=== PATIENT | male | born 1930 | race Caucasian/White ===

== ENCOUNTER 2017-10-12 13:56 | Observation (INO) | payer MEDICARE ==
[2017-10-12] MEDS ORDERED: NITROGLYCERIN SL TABS 0.4 MG TAB SUBLINGUAL STA (14:17)
--- NOTE | 2017-10-12 14:20 | ED ---
Chest Pain HPI - General Chief Complaint: Chest Pain Stated Complaint: chest pain/pain in left arm Time Seen by Provider: 10/12/17 14:05 Source: patient, RN notes reviewed Mode of arrival: wheelchair Limitations: no limitations - History of Present Illness Initial Comments: This is a 87-year-old male who presents with complaints of shortness of breath exertional dyspnea and chest pain today. States the shortness of breath For about 3 days he started developing chest pain today. She states it was 5/ 10 severity pressure-like with radiation to the left arm he still has some pain was better in about 3/10. He does also state that he had exertional dyspnea he was trying to cut her lawn yesterday when he has to stop using does not happen. He isn't no fever no chills no sweats cough or phlegm production. Complaint: chest pain - Related Data Home Medications Medication Instructions Recorded Confirmed Aspirin EC [Ecotrin] 325 mg PO DAILY PRN 10/12/17 10/12/17 Multivit-Min/FA/Lycopen/Lutein 1 tab PO DAILY 10/12/17 10/12/17 [Centrum Silver Men Tablet] Potassium Gluconate 99 mg PO DAILY 10/12/17 10/12/17 Allergies Allergy/AdvReac Type Severity Reaction Status Date / Time erythromycin base Allergy Unknown Verified 10/12/17 15:04 Review of Systems ROS Statement: Those systems with pertinent positive or pertinent negative responses have been documented in the HPI. ROS Other: All systems not noted in ROS Statement are negative. EKG Findings - EKG Results: EKG: interpreted by ERMD (Sinus rhythm left exodeviation LVH ventricular rate 71 FL interval 204 QRS duration 106 QT since QTC remained 96/4:30 st-t wave changes.) Past Medical History Past Medical History: Cancer Additional Past Medical History / Comment(s): prostate cancer History of Any Multi-Drug Resistant Organisms: None Reported Past Surgical History: Joint Replacement, Prostate Surgery Past Psychological History: No Psychological Hx Reported Smoking Status: Never smoker Past Alcohol Use History: None Reported Past Drug Use History: None Reported General Exam - General Exam Comments Initial Comments: This is a well-developed well-nourished awake alert oriented 3 male Limitations: no limitations General appearance: alert, in no apparent distress Head exam: Present: atraumatic, normocephalic, normal inspection Eye exam: Present: normal appearance, PERRL, EOMI. Absent: scleral icterus, conjunctival injection, periorbital swelling ENT exam: Present: normal exam, mucous membranes moist Neck exam: Present: normal inspection, full ROM. Absent: tenderness, meningismus, lymphadenopathy Respiratory exam: Present: normal lung sounds bilaterally. Absent: respiratory distress, wheezes, rales, rhonchi, stridor Cardiovascular Exam: Present: regular rate, normal rhythm, normal heart sounds. Absent: systolic murmur, diastolic murmur, rubs, gallop, clicks GI/Abdominal exam: Present: soft, normal bowel sounds. Absent: distended, tenderness, guarding, rebound, rigid Extremities exam: Present: normal inspection, full ROM, normal capillary refill. Absent: tenderness, pedal edema, joint swelling, calf tenderness Back exam: Present: normal inspection Neurological exam: Present: alert, oriented X3, CN II-XII intact Psychiatric exam: Present: normal affect, normal mood Skin exam: Present: warm, dry, intact, normal color. Absent: rash Course Vital Signs 10/12/17 10/12/17 13:59 14:54 Temperature 97.8 F Pulse Rate 70 68 Respiratory 20 16 Rate Blood Pressure 162/77 109/66 O2 Sat by Pulse 99 99 Oximetry - Reevaluation(s) Reevaluation #1: 10/12/17 15:57 Reevaluation patient states he is pain-free after nitroglycerin was given. Chest Pain MDM - MDM I did review the imaging and report no acute findings. Patient does have evidence of chest pain consistent with angina. He did get relief from the chest pain with nitroglycerin. He will be admitted with cardiology consultation. Critical Care Time Critical Care Time: Yes Critical Care Time: 31 minutes of critical care time which includes initial presentation with history physical labs x-rays reevaluation patient several occasions discuss with the patient family regarding findings discussion with the admitting physician admission orders and documentation of the above Disposition Clinical Impression: Unstable angina pectoris, Chest pain Disposition: ADMITTED IP TO THIS [facility] Condition: Stable Referrals: Frankie Sierra MD [Primary Care Provider] - 1-2 days
[2017-10-12 14:28] LABS: Basophils % (A) 0 %; Eosinophils # (A) 0.1 k/uL (0-0.7); Eosinophils % (A) 2 %; HCT 45.7 % (39.0-53.0); HGB 14.8 gm/dL (13.0-17.5); Lymphocytes # (A) 1.8 k/uL (1.0-4.8); Lymphocytes % (A) 38 %; MCH 30.5 pg (25.0-35.0); MCHC 32.5 g/dL (31.0-37.0); MCV 93.8 fL (80.0-100.0); Mean Platelet Volume 6.3; Monocytes # (A) 0.3 k/uL (0-1.0); Monocytes % (A) 6 %; Neutrophils # (A) 2.4 k/uL (1.3-7.7); Neutrophils % (A) 49 %; Platelet Count 347 k/uL (150-450); RBC 4.87 m/uL (4.30-5.90); RDW 12.1 % (11.5-15.5); WBC 4.8 k/uL (3.8-10.6)
[2017-10-12 14:36] LABS: Partial Thromboplastin Time 24.6 sec (22.0-30.0); Prothrombin Time 9.8 sec (9.0-12.0)
--- NOTE | 2017-10-12 14:43 | XR ---
EXAMINATION TYPE: XR chest 2V DATE OF EXAM: 10/12/2017 COMPARISON: NONE TECHNIQUE: PA and lateral views submitted. HISTORY: Chest pain FINDINGS: The lungs are clear and there is no pneumothorax, pleural effusion, or focal pneumonia. Heart size is prominent. Hypertrophic change and degenerative disc disease noted. Surgical clips in the abdomen. Biapical pleural thickening. No overt failure. Arthropathy of the shoulders with diffuse osteopenia. IMPRESSION: 1. No acute process.
[2017-10-12 14:55] LABS: ALT 26 U/L (21-72); AST 24 U/L (17-59); Albumin 4.5 g/dL (3.5-5.0); Alkaline Phosphatase 84 U/L (38-126); Anion Gap 10 mmol/L; Blood Urea Nitrogen 20 mg/dL (9-20); Calcium 9.7 mg/dL (8.4-10.2); Carbon Dioxide 28 mmol/L (22-30); Chloride 102 mmol/L (98-107); Glucose 142 mg/dL (74-99); Magnesium 2.1 mg/dL (1.6-2.3); Potassium 4.3 mmol/L (3.5-5.1); Sodium 140 mmol/L (137-145); Total Bilirubin 1.1 mg/dL (0.2-1.3); Total Protein 9.1 g/dL (6.3-8.2)
[2017-10-12 14:56] LABS: Creatine Kinase 43 U/L (55-170)
[2017-10-12 15:07] LABS: Creatine Kinase MB 1.2 ng/mL (0.0-2.4); Troponin I <0.012 ng/mL (0.000-0.034)
[2017-10-12] MEDS ORDERED: HEPARIN SOD,PORK IN 0.45% NACL 25,000 UNIT in 0.45% NACL 1 500ML.BAG IV SCH (16:00)
[2017-10-12] MEDS ORDERED: HEPARIN SODIUM,PORCINE 5,000 UNIT/ML 1 ML VIAL IV ONE (16:00)
[2017-10-12] MEDS ORDERED: NITROGLYCERIN SL TABS 0.4 MG TAB SUBLINGUAL PRN (16:00)
[2017-10-12] MEDS: SODIUM CHLORIDE 0.9% 1,000 ML IV SCH (16:17)
[2017-10-12 17:25] VITALS: BMI 28.6
[2017-10-12] MEDS: NITROGLYCERIN OINT 1 INCH/GM PACKET TOPICAL SCH ×2 (19:02→23:24)
[2017-10-12 22:01] LABS: Creatine Kinase 29 U/L (55-170)
[2017-10-12 22:14] LABS: Creatine Kinase MB 0.9 ng/mL (0.0-2.4); Troponin I <0.012 ng/mL (0.000-0.034)
[2017-10-13 04:02] LABS: Creatine Kinase 27 U/L (55-170)
[2017-10-13 04:05] LABS: Cholesterol 142 mg/dL (<200); HDL Cholesterol 46 mg/dL (40-60); LDL Cholesterol,Calculated 85 mg/dL (0-99); Triglycerides 54 mg/dL (<150)
[2017-10-13 04:15] LABS: Creatine Kinase MB 0.7 ng/mL (0.0-2.4); Troponin I <0.012 ng/mL (0.000-0.034)
[2017-10-13] MEDS: NITROGLYCERIN OINT 1 INCH/GM PACKET TOPICAL SCH (05:24)
[2017-10-13] MEDS ORDERED: DOBUTamine DRIP for NUC MED 500 MG in DEXTROSE/WATER 1 250ML.BAG IV ONE (08:22)
[2017-10-13] MEDS ORDERED: REGADENOSON 0.4 MG/5 ML SYRINGE IV ONE (08:30)
[2017-10-13] MEDS ORDERED: AMINOPHYLLINE 500 MG/20 ML VIAL IV PRN (08:30)
[2017-10-13] MEDS ORDERED: ALPRAZolam 0.25 MG TAB PO PRN (08:48)
[2017-10-13] MEDS ORDERED: ALPRAZolam 0.5 MG TAB PO PRN (08:48)
[2017-10-13] MEDS ORDERED: SODIUM CHLORIDE 0.9% 1,000 ML in EMPTY BAG 1 BAG IV ONE (08:48)
[2017-10-13] MEDS ORDERED: ATORVASTATIN 80 MG TAB PO STA (08:51)
[2017-10-13] MEDS ORDERED: ASPIRIN 325 MG TAB PO STA (08:51)
[2017-10-13] MEDS ORDERED: ASPIRIN 325 MG TAB PO SCH (09:00)
[2017-10-13] MEDS ORDERED: NON-FORMULARY DRUG (Potassium Gluconate [Potassium Gluconate] 99 MG) PO SCH (09:00)
[2017-10-13] MEDS ORDERED: LIDOCAINE 1% INJ 10MG/ML (20 ML MDV) ONE ×2 (09:25→11:55)
[2017-10-13] MEDS ORDERED: MIDAZOLAM 2 MG/2 ML VIAL ONE (09:25)
[2017-10-13] MEDS ORDERED: LIDOCAINE 1% INJ 10MG/ML (20 ML MDV) SQ ONE ×2 (09:38→12:08)
[2017-10-13] MEDS ORDERED: MIDAZOLAM 2 MG/2 ML VIAL IVP ONE (09:39)
[2017-10-13] MEDS ORDERED: IOPAMIDOL-370 125ML BTL INJ ONE ×2 (09:57→12:29)
[2017-10-13] MEDS ORDERED: IV FLUID CONTINUATION 1,000 ML IV ONE ×2 (09:58→12:21)
--- NOTE | 2017-10-13 10:13 | P.CRDCN ---
History of Present Illness History of present illness: Mr. Aguila is a pleasant 87-year-old male with no significant past medical history. He denies history of coronary artery disease and has never seen a bond writer for any reason. We have been asked to see him in consultation for symptoms of chest discomfort. He states this started about a week ago while he was cutting grass he noticed cessation in the anterior precordial region with associated shortness of breath. The symptoms persisted while he cut the grass and seemed to subside when he finished cutting the grass. He currently symptoms at that time and carried on with his regular activities. He noticed the symptoms again yesterday doing normal activities around the house. This time he noticed radiation down into the left arm which prompted him to come in for evaluation. He again had shortness of breath and some mild diaphoresis. Denies associated palpitations, nausea, vomiting or dizziness. EKG reveals sinus mechanism with no acute ST or T-wave abnormalities. Chest xray is negative for an acute cardiopulmonary process. Laboratory data reviewed, hemoglobin 14.8, platelets 347, sodium 140, potassium 4.3, magnesium 2.1, creatinine 0.8, cardiac enzymes negative 3, LDL 85, HDL 46. He takes no daily medications other than vitamin supplementation. He states approximately 5 years ago while he was vacationing in [place] he developed chest pain and underwent stress testing at that time. He states that the stress test was normal. His records are unavailable to me at this time. Review of Systems At the time of my exam: CONSTITUTIONAL: Denies fever. Denies chills. EYES: Denies blurred vision. Denies vision changes. Denies eye pain. EARS, NOSE, MOUTH & THROAT: Denies headache. Denies sore throat. Denies ear pain. CARDIOVASCULAR: Denies chest pain. Denies shortness of breath. Denies orthopnea. Denies PND. Denies palpitations. RESPIRATORY: Denies cough. GASTROINTESTINAL: Denies abdominal pain. Denies diarrhea. Denies constipation. Denies nausea. Denies vomiting. MUSCULOSKELETAL: Denies myalgias. INTEGUMENTARY: Denies pruitis. Denies rash. NEUROLOGIC: Denies numbness. Denies tingling. Denies weakness. PSYCHIATRIC: Denies anxiety. Denies depression. ENDOCRINE: Denies fatigue. Denies weight change. Denies polydipsia. Denies polyurina. GENITOURINARY: Denies burning, hematuria or urgency with micturation. HEMATOLOGIC: Denies history of anemia. Denies bleeding. Past Medical History Past Medical History: Cancer Additional Past Medical History / Comment(s): prostate cancer History of Any Multi-Drug Resistant Organisms: None Reported Past Surgical History: Joint Replacement, Prostate Surgery Additional Past Surgical History / Comment(s): left knee Past Anesthesia/Blood Transfusion Reactions: Previous Problems w/ Anesthesia, Motion Sickness, Postoperative Nausea & Vomiting (PONV) Past Psychological History: No Psychological Hx Reported Smoking Status: Never smoker Past Alcohol Use History: None Reported Past Drug Use History: None Reported - Past Family History Mother Family Medical History: Coronary Artery Disease (CAD) Father Family Medical History: CVA/TIA Brother(s) Family Medical History: Coronary Artery Disease (CAD), Myocardial Infarction ([place] ) Medications and Allergies Home Medications Medication Instructions Recorded Confirmed Type Aspirin EC [Ecotrin] 325 mg PO DAILY PRN 10/12/17 10/12/17 History Multivit-Min/FA/Lycopen/Lutein 1 tab PO DAILY 10/12/17 10/12/17 History [Centrum Silver Men Tablet] Potassium Gluconate 99 mg PO DAILY 10/12/17 10/12/17 History Allergies Allergy/AdvReac Type Severity Reaction Status Date / Time erythromycin base Allergy Unknown Verified 10/12/17 15:04 Physical Exam Vitals: Vital Signs Temp Pulse Pulse Resp BP BP Pulse Ox 10/13/17 08:49 97.6 F 64 18 101/51 97 10/13/17 08:00 64 18 10/13/17 07:25 97.6 F 64 18 101/51 97 10/13/17 04:00 16 10/13/17 03:40 98.3 F 64 16 101/40 95 10/13/17 00:00 16 10/12/17 23:20 97.7 F 68 16 107/49 95 10/12/17 20:00 16 10/12/17 18:40 98.6 F 80 16 118/65 97 10/12/17 16:50 16 10/12/17 16:45 98.2 F 70 18 133/67 98 10/12/17 16:31 98.2 F 10/12/17 15:59 67 16 114/68 99 10/12/17 14:54 68 16 109/66 99 10/12/17 13:59 97.8 F 70 20 162/77 99 Intake and Output 10/12/17 10/13/17 10/13/17 22:59 06:59 14:59 Intake Total 836.55 100 Balance 836.55 100 Intake: IV 100 Intake, IV Titration 116.55 Amount Heparin Sod,Pork in 0.45% 116.55 NaCl 25,000 unit In 0.45 % NaCl 1 500ml.bag @ 11.3 UNITS/KG/HR 19.98 mls/hr IV .Q24H [facility] Rx#: [id number] Oral 720 Other: Voiding Method Toilet Toilet Toilet # Voids 1 1 Weight 90.5 kg Blood pressure 101/51 heart rate 64 afebrile maintaining oxygen saturation on room air GENERAL: This is a 87-year-old male in no apparent distress at the time of my examination. HEENT: Head is atraumatic, normocephalic. Pupils are equal, round. Sclerae anicteric. Conjunctivae are clear. Mucous membranes of the mouth are moist. Neck is supple. There is no jugular venous distention. No carotid bruit is heard. LUNGS: Clear to auscultation no wheezes, rales or rhonchi. No chest wall tenderness is noted on palpation or with deep breathing. HEART: Regular rate and rhythm without murmurs, rubs or gallops. S1 and S2 heard. ABDOMEN: Soft, nontender. Bowel sounds are heard. No organomegaly noted. EXTREMITIES: No evidence of peripheral edema and no calf tenderness noted. VASCULAR: Radial and dorsalis pedis pulses palpated, no evidence of clubbing. NEUROLOGIC: Patient is awake, alert and oriented x3. Results 10/12/17 14:10 10/12/17 14:10 Cardiac Enzymes 10/12/17 10/12/17 10/12/17 Range/Units 14:10 14:10 21:09 AST 24 (17-59) U/L CK-MB (CK-2) 1.2 0.9 (0.0-2.4) ng/mL Troponin I <0.012 <0.012 (0.000-0.034) ng/mL 10/13/17 Range/Units 03:30 AST (17-59) U/L CK-MB (CK-2) 0.7 (0.0-2.4) ng/mL Troponin I <0.012 (0.000-0.034) ng/mL Coagulation 10/12/17 10/12/17 10/13/17 Range/Units 14:10 21:09 03:30 PT 9.8 (9.0-12.0) sec APTT 24.6 40.6 H 50.5 H (22.0-30.0) sec Lipids 10/13/17 Range/Units 03:30 Triglycerides 54 (<150) mg/dL Cholesterol 142 (<200) mg/dL HDL Cholesterol 46 (40-60) mg/dL CBC 10/12/17 Range/Units 14:10 WBC 4.8 (3.8-10.6) k/uL RBC 4.87 (4.30-5.90) m/uL Hgb 14.8 (13.0-17.5) gm/dL Hct 45.7 (39.0-53.0) % Plt Count 347 (150-450) k/uL Comprehensive Metabolic Panel 10/12/17 Range/Units 14:10 Sodium 140 (137-145) mmol/L Potassium 4.3 (3.5-5.1) mmol/L Chloride 102 (98-107) mmol/L Carbon Dioxide 28 (22-30) mmol/L BUN 20 (9-20) mg/dL Creatinine 0.80 (0.66-1.25) mg/dL Glucose 142 H (74-99) mg/dL Calcium 9.7 (8.4-10.2) mg/dL AST 24 (17-59) U/L ALT 26 (21-72) U/L Alkaline Phosphatase 84 (38-126) U/L Total Protein 9.1 H (6.3-8.2) g/dL Albumin 4.5 (3.5-5.0) g/dL Current Medications Generic Name Dose Route Start Last Admin Trade Name Freq PRN Reason Stop Dose Admin Alprazolam 0.25 mg 10/13/17 08:48 Xanax PO Q6HR PRN Mild Anxiety Alprazolam 0.5 mg 10/13/17 08:48 Xanax PO Q6HR PRN Moderate Anxiety Sodium Chloride 1,000 mls @ 20 mls/hr 10/12/17 16:00 10/12/17 16:17 Saline 0.9% IV 20 mls/hr .Q24H [facility] Administration Sodium Chloride 1,000 ml/ IV 1,000 mls @ 90.5 mls/hr 10/13/17 08:48 10/13/17 09:04 Solution IV 10/13/17 19:50 90.5 mls/hr .Q11H3M ONE Administration 1 ML/KG/HR Multivitamins 1 each 10/13/17 12:00 Theragran PO 1200 LISA Nitroglycerin 0.4 mg 10/12/17 16:00 Nitrostat SUBLINGUAL Q5M PRN Chest Pain Intake and Output 10/12/17 10/13/17 10/13/17 22:59 06:59 14:59 Intake Total 836.55 100 Balance 836.55 100 Intake: IV 100 Intake, IV Titration 116.55 Amount Heparin Sod,Pork in 0.45% 116.55 NaCl 25,000 unit In 0.45 % NaCl 1 500ml.bag @ 11.3 UNITS/KG/HR 19.98 mls/hr IV .Q24H [facility] Rx#: [id number] Oral 720 Other: Voiding Method Toilet Toilet Toilet # Voids 1 1 Weight 90.5 kg 10/12/17 14:10 10/12/17 14:10 Assessment and Plan Assessment: ASSESSMENT Unstable angina, symptoms of exertional shortness of breath and chest pain for the last 7 days intermittently PLAN We will recommend proceeding with cardiac catheterization. I have discussed the risks, benefits and alternative therapies for the above-mentioned procedure and for both sedation/analgesia as well as necessary blood product administration, if indicated, as they pertain to this patient. The patient has indicated understanding and acceptance of the risks and procedures discussed. Questions have been answered appropriately and he is agreeable to move forward with the above stated procedure. Obtain 2-D echocardiogram and Doppler study to assess cardiac structure and function. Further recommendations to follow based upon clinical course. Thank you kindly for this consultation. The above impression and plan of care have been discussed and directed by the signing physician. Omayra Millan, nurse practitioner, acting as scribe for signing physician.
--- NOTE | 2017-10-13 10:55 | CC ---
CARDIAC CATHETERIZATION REPORT INDICATION: Unstable angina. PROCEDURE NOTE: After obtaining informed consent, left heart catheterization and coronary angiogram were performed via the right femoral artery using standard Anju catheters. Patient tolerated the procedure well without any obvious immediate complications. A femoral angiogram was performed. Patient received moderate conscious sedation. Total sedation time was 15 minutes. FINDINGS: 1. HEMODYNAMICS: Left ventricular end-diastolic pressure is 6 mm. There is no significant gradient across aortic valve. 2. LEFT VENTRICULOGRAM: Left ventriculogram was not performed. 3. ANGIOGRAPHIC DATA: 4. Left main coronary artery reveals a normal-sized vessel and is free of stenosis. Divides into left anterior descending coronary artery and circumflex coronary artery. LAD is heavily calcified but there are no focal significant lesions. It gives off 2 diagonal branches. The first diagonal branch has a 70%-80% ostial stenosis. Circumflex coronary artery and its branches are free of significant stenosis. It is a nondominant vessel. Right coronary artery is a large dominant vessel that shows a focal area of stenosis in the proximal part, at its worst it seems to be a 70% to 80% stenosis. CONCLUSION: 1. 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 2. An 80% stenosis involving the ostial portion of the first diagonal branch. PLAN: Patient will undergo angioplasty with stent placement of right coronary artery. MMODL / IJN: [id number] /
[2017-10-13] MEDS ORDERED: fentaNYL (PF) 50 MCG/ML 2 ML AMP ONE (11:55)
[2017-10-13] MEDS ORDERED: fentaNYL (PF) 50 MCG/ML 2 ML AMP IVP ONE (12:08)
--- NOTE | 2017-10-13 12:09 | P.HPIM ---
History of Present Illness 87-year-old male on presented emergency room with complaints of shortness of breath with left arm pain. States for a few weeks she's been developing discomfort after cutting the grass. Patient is not seen this patient for approximately 8 years. Patient travels between [place] and [place]. Family states he is healthy Review of Systems Constitutional: Reports fatigue Cardiovascular: Reports chest pain Respiratory: Reports dyspnea Past Medical History Past Medical History: Cancer Additional Past Medical History / Comment(s): prostate cancer History of Any Multi-Drug Resistant Organisms: None Reported Past Surgical History: Joint Replacement, Prostate Surgery Additional Past Surgical History / Comment(s): left knee Past Anesthesia/Blood Transfusion Reactions: Previous Problems w/ Anesthesia, Motion Sickness, Postoperative Nausea & Vomiting (PONV) Past Psychological History: No Psychological Hx Reported Smoking Status: Never smoker Past Alcohol Use History: None Reported Past Drug Use History: None Reported - Past Family History Mother Family Medical History: Coronary Artery Disease (CAD) Father Family Medical History: CVA/TIA Brother(s) Family Medical History: Coronary Artery Disease (CAD), Myocardial Infarction ([place] ) Medications and Allergies Home Medications Medication Instructions Recorded Confirmed Type Aspirin EC [Ecotrin] 325 mg PO DAILY PRN 10/12/17 10/12/17 History Multivit-Min/FA/Lycopen/Lutein 1 tab PO DAILY 10/12/17 10/12/17 History [Centrum Silver Men Tablet] Potassium Gluconate 99 mg PO DAILY 10/12/17 10/12/17 History Allergies Allergy/AdvReac Type Severity Reaction Status Date / Time erythromycin base Allergy Unknown Verified 10/12/17 15:04 Physical Exam Vitals: Vital Signs Temp Pulse Pulse Resp BP BP Pulse Ox 10/13/17 11:41 76 16 127/64 96 10/13/17 10:45 63 16 127/71 96 10/13/17 10:27 64 16 134/75 96 10/13/17 10:16 82 16 118/72 99 10/13/17 10:00 60 16 136/72 99 10/13/17 08:49 97.6 F 64 18 101/51 97 10/13/17 08:00 64 18 10/13/17 07:25 97.6 F 64 18 101/51 97 10/13/17 04:00 16 10/13/17 03:40 98.3 F 64 16 101/40 95 10/13/17 00:00 16 10/12/17 23:20 97.7 F 68 16 107/49 95 10/12/17 20:00 16 10/12/17 18:40 98.6 F 80 16 118/65 97 10/12/17 16:50 16 10/12/17 16:45 98.2 F 70 18 133/67 98 10/12/17 16:31 98.2 F 10/12/17 15:59 67 16 114/68 99 10/12/17 14:54 68 16 109/66 99 10/12/17 13:59 97.8 F 70 20 162/77 99 Intake and Output 10/12/17 10/13/17 10/13/17 22:59 06:59 14:59 Intake Total 836.55 100 Output Total 125 Balance 836.55 -25 Intake: IV 100 Intake, IV Titration 116.55 Amount Heparin Sod,Pork in 0.45% 116.55 NaCl 25,000 unit In 0.45 % NaCl 1 500ml.bag @ 11.3 UNITS/KG/HR 19.98 mls/hr IV .Q24H [facility] Rx#: [id number] Oral 720 Output: Urine 125 Other: Voiding Method Toilet Toilet Toilet # Voids 1 1 Weight 90.5 kg - Constitutional General appearance: average body habitus - EENT Eyes: PERRLA Ears: bilateral: normal - Neck Neck: normal ROM - Respiratory Respiratory: bilateral: CTA - Cardiovascular Rhythm: regular - Gastrointestinal General gastrointestinal: soft - Integumentary Integumentary: normal - Neurologic Neurologic: CNII-XII intact - Musculoskeletal Musculoskeletal: gait normal - Psychiatric Psychiatric: A&O x's 3, appropriate affect, intact judgment & insight Results CBC & Chem 7: 10/12/17 14:10 10/12/17 14:10 Labs: Abnormal Lab Results - Last 24 Hours (Table) 10/12/17 10/12/17 10/12/17 Range/Units 14:10 14:10 21:09 APTT (22.0-30.0) sec Glucose 142 H (74-99) mg/dL Total Creatine Kinase 43 L 29 L (55-170) U/L Total Protein 9.1 H (6.3-8.2) g/dL 10/12/17 10/13/1710/13/18 Range/Units 21:09 03:30 03:30 APTT 40.6 H 50.5 H (22.0-30.0) sec Glucose (74-99) mg/dL Total Creatine Kinase 27 L (55-170) U/L Total Protein (6.3-8.2) g/dL Chest x-ray: report reviewed (Cardiac cath showing of coronary disease right coronary artery) Thrombosis Risk Factor Assmnt - Choose All That Apply Any of the Below Risk Factors Present?: No Each Risk Factor Represents 3 Points: Age 75 years or older Thrombosis Risk Factor Assessment Total Risk Factor Score: 3 Thrombosis Risk Factor Assessment Level: Moderate Risk Assessment and Plan Assessment: Assessment Coronary disease patient is post cardiac cath showing right coronary artery disease Troponins negative 3 History of prostate cancer Plan Continued consultation with cardiology angioplasty a plan for stent placement right coronary artery
[2017-10-13] MEDS ORDERED: BIVALIRUDIN BOLUS 250 MG/50 ML IV ONE (12:10)
[2017-10-13] MEDS ORDERED: CLOPIDOGREL 75 MG TAB ONE (12:15)
[2017-10-13] MEDS ORDERED: CLOPIDOGREL 75 MG TAB PO ONE (12:17)
[2017-10-13] MEDS ORDERED: BIVALIRUDIN 250 MG in SODIUM CHLORIDE 0.9% 50 ML IV ONE (12:21)
[2017-10-13] MEDS ORDERED: ZOLPIDEM 5 MG TAB PO PRN (12:46)
[2017-10-13] MEDS ORDERED: RX INFO: IV CONTRAST WAS GIVEN 1 EACH MISC MISCELLANE PRN (12:46)
[2017-10-13] MEDS ORDERED: NITROGLYCERIN SL TABS 0.4 MG TAB SUBLINGUAL PRN (12:46)
[2017-10-13] MEDS ORDERED: MAG HYDROX/AL HYDROX/SIMETH 30 ML CUP PO PRN (12:46)
[2017-10-13] MEDS ORDERED: ATROPINE SULFATE 0.1 MG/ML 10ML SYRINGE IV PRN (12:46)
[2017-10-13] MEDS ORDERED: SODIUM CHLORIDE 0.9% 1,000 ML IV SCH (13:00)
[2017-10-13] MEDS: METOPROLOL TARTRATE 25 MG TAB PO SCH ×2 (14:25→20:57)
[2017-10-13] MEDS: MULTIVITAMINS, THERA 1 EACH TAB PO SCH (14:25)
--- NOTE | 2017-10-13 14:34 | PTCA ---
PERCUTANEOUSTRANS CORORONARY ANGIOGRAPHY Mr. Aguila is an 87-year-old male with no prior documented history of cardiac disease who presented with new onset angina pectoris. He underwent cardiac catheterization by Dr. Rosario and was found to have critical stenosis involving the calcified mid-right coronary artery. In view of that, recommendation made regarding angioplasty and stenting. The procedures, risks and complications were discussed with the patient who is in full understanding and agreement. PROCEDURE: Patient was brought to [facility] in a fasting semi-sedated state after receiving fentanyl and Benadryl and achieving moderate conscious sedated state. Using Xylocaine anesthesia and a guidewire exchange technique, a 6-Hebrew sheath in the right femoral artery was exchanged to a new 6-Hebrew sheath. Following that, a 6-Hebrew FR4 guiding catheter introduced into the system after cannulating the right coronary ostium, a 0.014 advanced medium weight J-wire was advanced across the lesion and positioned distally. Then, attempt to advance a 4.0 x 18 mm Xience Alpine stent were unsuccessful. That stent was removed and another 0.014 advanced medium weight J-wire was advanced next to the first one in a jojo fashion subsequently the stent was advanced, deployed and post-dilated at 16 atmospheres. After the last inflation, after appropriate wait, the balloon and the guidewire were withdrawn back in the guiding catheter. Images were obtained and repeated. Those images reveal stable successful stenting. At that point, the guiding catheter, the balloon and the guidewire were removed. The sheath was removed. Hemostasis was obtained with deployment of an Angio- Seal. There was no immediate complication. Patient is returned to his room in stable condition. Of note, patient received Angiomax per protocol as well as oral loading dose of clopidogrel. He had mild EKG changes that resolved at the end of the procedure. RESULTS: Successful stenting of the mid right coronary artery with reduction of stenosis from 80% to 0%. RECOMMENDATION: 1. Patient will be continued on aspirin, Plavix and statin. The importance of dual antiplatelet treatment was discussed with the patient and his family who are in full understanding and agreement. 2. Duration of procedure is 21 minutes. MMODL / IJN: [id number] /
--- NOTE | 2017-10-13 14:37 | LTR ---
DATE OF SERVICE; 10/13/2017 RE: Jaron Aguila Dear Dr. Sierra: I had the pleasure to perform coronary angioplasty and stenting on Mr. Aguila at [facility] on October 13, 2017 and a full copy of the procedure note will be forwarded to you. In brief, he was found to have critical stenosis in the mid right coronary artery, underwent successful stenting of that vessel using a drug-eluting stent. I am hopeful that this procedure will stabilize his status. Thank you again for allowing me to participate in this patient's care. Please feel free to call for any questions. Sincerely yours, Ana Adams MD MMSABINOL / JULIANNEN: [id number] /
[2017-10-13] MEDS: SODIUM CHLORIDE 0.9% 1,000 ML IV SCH (17:03)
[2017-10-14 06:06] LABS: Anion Gap 7 mmol/L; Blood Urea Nitrogen 14 mg/dL (9-20); Calcium 9.1 mg/dL (8.4-10.2); Carbon Dioxide 26 mmol/L (22-30); Chloride 105 mmol/L (98-107); Glucose 91 mg/dL (74-99); Potassium 3.9 mmol/L (3.5-5.1); Sodium 138 mmol/L (137-145)
[2017-10-14] MEDS: METOPROLOL TARTRATE 25 MG TAB PO SCH (08:16)
--- NOTE | 2017-10-14 08:39 | ECHOF ---
Referral Reason:cp, sob MEASUREMENTS -------- HEIGHT: 177.8 cm WEIGHT: 90.3 kg BP: 101/51 RVIDd: 3.5 cm (< 3.3) IVSd: 1.3 cm (0.6 - 1.1) LVIDd: 5.9 cm (3.9 - 5.3) LVPWd: 1.4 cm (0.6 - 1.1) IVSs: 1.7 cm LVIDs: 4.6 cm LVPWs: 1.8 cm LAESV Index (A-L): 40.24 ml/m Ao Diam: 4.0 cm (2.0 - 3.7) AV Cusp: 2.2 cm (1.5 - 2.6) LA Diam: 3.2 cm (2.7 - 3.8) MV E Girish: 0.41 m/s MV DecT: 377 ms MV A Girish: 0.71 m/s MV E/A Ratio: 0.58 AR PHT: 523 ms RAP: 5.00 mmHg RVSP: 21.91 mmHg MV EF SLOPE: 131.48 mm/s (70 - 150) MV EXCURSION: 1.72 cm (> 18.000) FINDINGS -------- Sinus rhythm. This was a technically adequate study. The left ventricular size is normal. There is mild concentric left ventricular hypertrophy. There is mild global hypokinesis of LV . Overall left ventricular systolic function is mildly impaired w ith, an EF between 45 - 50 %. The right ventricle is normal in size. LA is severely dilated >40 ml/m2 The right atrium is normal in size. Aortic valve is trileaflet and is mildly thickened. There is mild aortic regurgitation. There is no evidence of aortic stenosis. The mitral valve leaflets are mildly thickened. Cbyw-gn-qaahmgor mitral regurgitation is present. Trace tricuspid regurgitation present. Right ventricular systolic pressure is normal at < 35 mmHg. There is no evidence of pulmonary hypertension. Trace/mild (physiologic) pulmonic regurgitation. The aortic root size is normal. IVC Not well visulized. There is no pericardial effusion. CONCLUSIONS -------- 1. Sinus rhythm. 2. This was a technically adequate study. 3. The left ventricular size is normal. 4. There is mild concentric left ventricular hypertrophy. 5. There is mild global hypokinesis of LV . 6. Overall left ventricular systolic function is mildly impaired with, an EF between 45 - 50 %. 7. LA is severely dilated >40 ml/m2 8. Aortic valve is trileaflet and is mildly thickened. 9. There is mild aortic regurgitation. 10. The mitral valve leaflets are mildly thickened. 11. Rmvi-dk-suwxrxhd mitral regurgitation is present. 12. Trace tricuspid regurgitation present. 13. Right ventricular systolic pressure is normal at < 35 mmHg. 14. There is no evidence of pulmonary hypertension. 15. Trace/mild (physiologic) pulmonic regurgitation. 16. The aortic root size is normal. 17. IVC Not well visulized. 18. There is no pericardial effusion. COMMUNITY ENGAGEMENT SPECIALIST: Ye Beatty RDCS
[2017-10-14] MEDS ORDERED: ASPIRIN 81 MG PO SCH (09:00)
[2017-10-14 11:23] VITALS: BP 117/72; PULSE 54; RESP 16; TEMP 98.2
[2017-10-14] MEDS: MULTIVITAMINS, THERA 1 EACH TAB PO SCH (11:24)
--- NOTE | 2017-10-14 11:43 | PN ---
PROGRESS NOTE Mr. Aguila is an 87-year-old male who presented with symptoms of unstable angina, underwent cardiac catheterization, was found to have significant obstructive disease in the proximal mid right coronary artery, underwent stenting of that vessel. He is doing well this morning, ambulating without difficulty. Denying any chest pain. No dizziness or palpitation. Denies any nausea. He is continued on aspirin once a day, Lipitor 40 mg daily, Plavix 75 mg daily, metoprolol tartrate 25 mg twice a day. PHYSICAL EXAMINATION: Blood pressure 117/70 with a heart rate in the 60s. LUNGS: Clear. HEART: Regular rate and rhythm. S1, S2. No S3 with systolic murmur, no diastolic murmur. ABDOMEN: Soft, nontender. Right groin, no hematoma. LAB DATA: Revealed BUN and creatinine 14 and 0.7. IMPRESSION: 1. Unstable angina, status post stenting of the right coronary artery. 2. Hyperlipidemia. RECOMMENDATION: Patient will be discharged home today and follow in a week with Dr. Rosario. MMJOHN / JULIANNEN: [id number] /
[2017-10-14] MEDS ORDERED: CLOPIDOGREL 75 MG TAB PO SCH (12:00)
--- NOTE | 2017-10-14 13:16 | P.DS ---
Providers Date of admission: 10/12/17 16:00 Attending physician: Frankie Sierra Consults: 10/12/17 16:00 Consult Physician Urgent Consulting Provider: Humera Mukherjee Consult Reason/Comments: Unstable angina Do you want consulting provider notified?: Yes 10/13/17 12:46 Consult Physician Routine Consulting Provider: [facility] Consult Reason/Comments: Post Interventional patient Do you want consulting provider notified?: Already Contacted Primary care physician: Frankie Sierra Hospital Course: A pleasant 87 years old male with past medical history of prostate cancer, status post prostate surgery, motion sickness, who presents because of dyspnea and chest pain. He had significant dyspnea over 12 days' duration. Associated with mild left-sided chest pain no specific nonradiating. Patient underwent a logic evaluation and status post cardiac cath on 10/14/[address] Rosario who found to have critical stenosis involving the calcified midright coronary artery , with successful stenting with reduction of stenosis from 80% to 0%. On the day of discharge patient telling me his dyspnea and chest pain or completely resolved. He doesn't have any new complaints. No change in urine or bowel habits. No fever. Patient was cleared by cardiology for discharge Problem list and management plan was discussed with the patient and family at bedside and they verbalized understanding and agreement Patient was found stable and can be discharged home however he needs follow-up as an outpatient. Patient was instructed to follow up with his PCP Dr. Sierra in 1 week and they agree. Discussed the case with cardiology team under going to make appointments for the patient. Appointment dates and timing were discussed with the patient and he agrees with them. Physical exam GENERAL: The patient is alert and oriented x3, not in any acute distress. Well developed, well nourished. HEENT: Pupils are round and equally reacting to light. EOMI. No scleral icterus. No conjunctival pallor. Normocephalic, atraumatic. No pharyngeal erythema. No thyromegaly. CARDIOVASCULAR: S1 and S2 present. No murmurs, rubs, or gallops. PULMONARY: Chest is clear to auscultation, no wheezing or crackles. ABDOMEN: Soft, nontender, nondistended, normoactive bowel sounds. No palpable organomegaly. MUSCULOSKELETAL: No joint swelling or deformity. EXTREMITIES: No cyanosis, clubbing, or pedal edema. NEUROLOGICAL: Gross neurological examination did not reveal any focal deficits. SKIN: No rashes. Time spent more than 35 minutes Patient Condition at Discharge: Good Plan - Discharge Summary Discharge Rx Participant: No New Discharge Prescriptions: New Aspirin 81 mg PO DAILY #30 chew Atorvastatin [Lipitor] 40 mg PO HS #30 tab Clopidogrel [Plavix] 75 mg PO DAILY #30 tab Metoprolol Tartrate [Lopressor] 25 mg PO BID #60 tab Nitroglycerin Sl Tabs [Nitrostat] 0.4 mg SUBLINGUAL Q5M PRN #25 tab PRN Reason: Chest Pain Discontinued Aspirin EC [Ecotrin] 325 mg PO DAILY PRN PRN Reason: Chest Pain No Action Potassium Gluconate 99 mg PO DAILY Multivit-Min/FA/Lycopen/Lutein [Centrum Silver Men Tablet] 1 tab PO DAILY Discharge Medication List Multivit-Min/FA/Lycopen/Lutein [Centrum Silver Men Tablet] 1 tab PO DAILY [History] Potassium Gluconate 99 mg PO DAILY 10/12/17 [History] Aspirin 81 mg PO DAILY #30 chew 10/14/17 [Rx] Atorvastatin [Lipitor] 40 mg PO HS #30 tab 10/14/17 [Rx] Clopidogrel [Plavix] 75 mg PO DAILY #30 tab 10/14/17 [Rx] Metoprolol Tartrate [Lopressor] 25 mg PO BID #60 tab 10/14/17 [Rx] Nitroglycerin Sl Tabs [Nitrostat] 0.4 mg SUBLINGUAL Q5M PRN #25 tab 10/14/17 [Rx ] Follow up Appointment(s)/Referral(s): Frankie Sierra MD [Primary Care Provider] - 10/19/17 10:20 am (Tuesday) Young Rosario MD [STAFF PHYSICIAN] - 10/20/17 12:45 pm () Patient Instructions/Handouts: *Surgery [facility] - After Heart Catheterization - [employer] Instructions, Left Heart Catheterization (DC) Activity/Diet/Wound Care/Special Instructions: Continue with cardiac diet Activity is limited total you see your Doctor Discharge Disposition: HOME SELF-CARE
[2017-10-14] MEDS ORDERED: ATORVASTATIN 40 MG TAB PO SCH (21:00)
== END 2017-10-14 15:02 | disposition home or self-care (01) ==
LOC: EC 13:56 → 3OBS 16:00 → 6SEL 10-13 12:40
PROVIDERS: ADMIT Family Medicine; ATTEND Family Medicine
DX: I25.110 Atherosclerotic heart disease of native coronary artery with unstable angina pectoris (principal); E78.5 Hyperlipidemia, unspecified; Z85.46 Personal history of malignant neoplasm of prostate; Z82.49 Family history of ischemic heart disease and other diseases of the circulatory system; Z79.899 Other long term (current) drug therapy; Z88.1 Allergy status to other antibiotic agents; Z79.82 Long term (current) use of aspirin
CPT/HCPCS: 96374; 99291; 36415; 93005; 93306; 93458; 85347; 85379; 83880; 80061; 80053; 80048; 82550 ×2; 82553 ×2; 83735; 84484 ×2; 85025; 85610; 85730 ×2; 71046; G0378 ×4; C9600; C1769 ×2; C1760; C1887; C1894; C1874; J2250; J1250; J1644 ×2; J2001; J3010; J0583; J2785; Q9967

== ENCOUNTER → 2017-12-27 | Outpatient (CLI) | payer MEDICARE ==
[2017-12-27 09:00] LABS: ALT 32 U/L (21-72); AST 25 U/L (17-59); Cholesterol 114 mg/dL (<200); HDL Cholesterol 48 mg/dL (40-60); LDL Cholesterol,Calculated 52 mg/dL (0-99); Triglycerides 71 mg/dL (<150)
== END ==
LOC: LABWHC1 07:37
PROVIDERS: ATTEND Internal Medicine Cardiovascular Disease
DX: E78.2 Mixed hyperlipidemia (principal)
CPT/HCPCS: 36415; 80061; 84450; 84460

== ENCOUNTER → 2018-02-15 | Outpatient (CLI) | payer MEDICARE ==
--- NOTE | 2018-02-15 15:25 | CT ---
EXAMINATION TYPE: CT abdomen pelvis wo con DATE OF EXAM: 02/15/2018 COMPARISON: None HISTORY: 87-year-old male gross hematuria X 2 weeks, hx of prostate ca CT DLP: 846.7 mGycm. Automated exposure control for dose reduction was used. TECHNIQUE: Contiguous axial scanning of the abdomen and pelvis without IV contrast. Coronal and sagit paula reconstructions performed. FINDINGS: Heart borderline enlarged without pericardial effusion. Coronary vessel calcifications are present an d are remarkable for coronary artery disease. Strandy areas of atelectasis in the lower lungs. Calcif ied granuloma posterior left base. No pleural effusion. Small hiatal hernia. Multiple hypodense lesions within the liver is inadequately characterized on this noncontrast study b ut most suggestive of benign cysts, largest measuring 5.5 cm central left liver lobe. Cholecystectomy clips. Adrenal glands, and atrophic pancreas show no gross abdomen only. A few scattered calcified granulomas in the spleen. No evidence for nephrolithiasis or hydronephrosis. There is a 2.4 cm hypodense cortical lesion upper pole of the left kidney that may represent a cyst. No suspicious calcifications seen along the course of either ureter. No dilated small bowel, free fluid, or free air. No mesenteric or retroperitoneal lymphadenopathy. Mild to moderate stool within the right hemicolon. No pericolonic inflammatory change. Bladder not distended. Prostate gland is surgically absent. Penile prosthesis is present with cathete r extending along the right inguinal canal and reservoir located in the central pelvis above the blad alberto. No abnormal fluid collection in the pelvis or pelvic lymphadenopathy. Left-sided pelvic phleboli ths. Bones: Degenerative changes at the right greater than left hips, SI joints, and facet arthropathy thr oughout as well as multilevel degenerative disc disease. Grade 1 retrolisthesis and L1-L2. IMPRESSION: 1. A 2.4 cm cortical hypodense lesion upper pole left kidney. Assessment is limited on this noncontra st CT but the lesion likely represents a cyst. This can be confirmed with renal ultrasound. If the le martin remains equivocal on ultrasound, either a contrast enhanced study or 6 month follow-up CT can be performed. 2. No nephrolithiasis or hydronephrosis. 3. Bladder partially distended. Prostate gland surgically absent. 4. Multiple lesions, likely cysts within the liver measuring up to 5.5 cm.
== END | disposition home or self-care (01) ==
LOC: RADCTMAIN 14:47
PROVIDERS: ATTEND Urology
DX: N28.9 Disorder of kidney and ureter, unspecified (principal); N32.89 Other specified disorders of bladder; Z90.79 Acquired absence of other genital organ(s); Z88.1 Allergy status to other antibiotic agents
CPT/HCPCS: 74176

== ENCOUNTER 2019-08-22 22:37 | Observation (INO) | payer MEDICARE ==
[2019-08-23 05:43] LABS: ALT 28 U/L (4-49); AST 30 U/L (17-59); African American GFR (CKD) >90 (>60 ml/min/1.73 sqM); Albumin 3.7 g/dL (3.5-5.0); Alkaline Phosphatase 102 U/L (38-126); Anion Gap 5 mmol/L; Blood Urea Nitrogen 24 mg/dL (9-20); Calcium 8.9 mg/dL (8.4-10.2); Carbon Dioxide 25 mmol/L (22-30); Chloride 105 mmol/L (98-107); Glucose 143 mg/dL (74-99); Non-African American GFR(CKD) 85 (>60 ml/min/1.73 sqM); Potassium 4.1 mmol/L (3.5-5.1); Sodium 135 mmol/L (137-145); Total Bilirubin 0.6 mg/dL (0.2-1.3); Total Protein 7.8 g/dL (6.3-8.2)
[2019-08-23 05:44] LABS: Basophils % (A) 0 %; Eosinophils # (A) 0.2 k/uL (0-0.7); Eosinophils % (A) 4 %; HGB 12.6 gm/dL (13.0-17.5); Lymphocytes # (A) 1.9 k/uL (1.0-4.8); Lymphocytes % (A) 37 %; MCH 33.6 pg (25.0-35.0); MCHC 34.9 g/dL (31.0-37.0); MCV 96.3 fL (80.0-100.0); Monocytes # (A) 0.4 k/uL (0-1.0); Monocytes % (A) 9 %; Neutrophils # (A) 2.3 k/uL (1.3-7.7); Neutrophils % (A) 45 %; Platelet Count 275 k/uL (150-450); RBC 3.74 m/uL (4.30-5.90); RDW 12.1 % (11.5-15.5); WBC 5.1 k/uL (3.8-10.6)
[2019-08-23 06:04] LABS: Partial Thromboplastin Time 25.6 sec (22.0-30.0); Prothrombin Time 10.2 sec (9.0-12.0)
[2019-08-23] MEDS ORDERED: ONDANSETRON 4 MG/2 ML VIAL IVP PRN (06:08)
[2019-08-23] MEDS ORDERED: ACETAMINOPHEN TAB 325 MG TAB PO PRN (06:08)
[2019-08-23] MEDS: SODIUM CHLORIDE 0.9% 1,000 ML IV SCH ×2 (06:23→10:43)
--- NOTE | 2019-08-23 06:35 | XR ---
EXAM: XR Chest, 2 Views CLINICAL HISTORY: chest pain TECHNIQUE: Frontal and lateral views of the chest. COMPARISON: No relevant prior studies available. FINDINGS: Lungs: Unremarkable. No infiltration, atelectasis or mass density. Pleural space: Unremarkable. No pneumothorax. No pleural fluid. Heart: Unremarkable. No cardiomegaly. Mediastinum: Unremarkable. Bones/joints: Unremarkable. No acute abnormalities. IMPRESSION: No acute findings in the chest.
[2019-08-23] MEDS ORDERED: NITROGLYCERIN SL TABS 0.4 MG TAB SUBLINGUAL PRN ×2 (09:33→11:11)
[2019-08-23] MEDS ORDERED: MULTIVITAMINS, THERA 1 EACH TAB PO SCH (09:45)
[2019-08-23] MEDS ORDERED: ASPIRIN 81 MG PO SCH (09:45)
[2019-08-23] MEDS ORDERED: METOPROLOL TARTRATE 25 MG TAB PO SCH (10:00)
[2019-08-23] MEDS ORDERED: ALPRAZolam 0.25 MG TAB PO PRN (11:11)
[2019-08-23] MEDS ORDERED: SODIUM CHLORIDE 0.9% 1,000 ML in EMPTY BAG 1 BAG IV ONE (11:11)
[2019-08-23] MEDS ORDERED: ATORVASTATIN 80 MG TAB PO STA (11:11)
[2019-08-23] MEDS ORDERED: ASPIRIN 325 MG TAB PO STA (11:11)
[2019-08-23] MEDS ORDERED: ALPRAZolam 0.5 MG TAB PO PRN (11:11)
--- NOTE | 2019-08-23 11:24 | P.HPIM ---
History of Present Illness 89-year-old the pleasant gentleman came in with comments of her pressure-like chest pain in the midsternal area radiating to the left arm. Mild to moderate in severity no associated lightheadedness shortness of breath, diaphoresis . She denied any fever chills cough chest pain is nonpruritic not associated for patient had a recommendation stents in the past patient is presently not on beta thais patient is on an aspirin at this time. They did not show any significant abnormality EKG sinus rhythm without any history as today with changes but there is first-degree AV block probably because of this reason patient is not on any beta thais. Review of Systems REVIEW OF SYSTEMS: CONSTITUTIONAL: No fever, no malaise, no fatigue. HEENT: No recent visual problems or hearing problems. Denied any sore throat. CARDIOVASCULAR: No orthopnea, PND, no palpitations, no syncope. PULMONARY: No shortness of breath, no cough, no hemoptysis. GASTROINTESTINAL: No diarrhea, no nausea, no vomiting, no abdominal pain. NEUROLOGICAL: No headaches, no weakness, no numbness. HEMATOLOGICAL: Denies any bleeding or petechiae. GENITOURINARY: Denies any burning micturition, frequency, or urgency. MUSCULOSKELETAL/RHEUMATOLOGICAL: Denies any joint pain, swelling, or any muscle pain. ENDOCRINE: Denies any polyuria or polydipsia. The rest of the 14-point review of systems is negative. Past Medical History Past Medical History: Coronary Artery Disease (CAD), Cancer, Myocardial Infarction (ND) Additional Past Medical History / Comment(s): prostate cancer, skin CA, bladder CA History of Any Multi-Drug Resistant Organisms: None Reported Past Surgical History: Heart Catheterization With Stent, Joint Replacement, Prostate Surgery Additional Past Surgical History / Comment(s): left knee Past Anesthesia/Blood Transfusion Reactions: Previous Problems w/ Anesthesia, Motion Sickness, Postoperative Nausea & Vomiting (PONV) Past Psychological History: No Psychological Hx Reported Smoking Status: Never smoker Past Alcohol Use History: None Reported Past Drug Use History: None Reported - Past Family History Mother Family Medical History: Coronary Artery Disease (CAD) Father Family Medical History: CVA/TIA Brother(s) Family Medical History: Coronary Artery Disease (CAD), Myocardial Infarction (ND) Medications and Allergies Home Medications Medication Instructions Recorded Confirmed Type Multivit-Min/FA/Lycopen/Lutein 1 tab PO DAILY 10/12/17 08/23/19 History [Centrum Silver Men Tablet] Potassium Gluconate 99 mg PO DAILY 10/12/17 08/23/19 History Aspirin 81 mg PO DAILY #30 chew 10/14/17 08/23/19 Rx Atorvastatin [Lipitor] 40 mg PO HS #30 tab 10/14/17 08/23/19 Rx Nitroglycerin Sl Tabs [Nitrostat] 0.4 mg SUBLINGUAL Q5M PRN #25 tab 10/14/17 08/23/19 Rx Metoprolol Tartrate [Lopressor] 25 mg PO BID #60 tab 08/23/19 Rx Allergies Allergy/AdvReac Type Severity Reaction Status Date / Time erythromycin base Allergy Unknown Verified 08/23/19 07:30 Physical Exam Vitals: Vital Signs Temp Pulse Resp BP Pulse Ox 08/23/19 04:00 98.0 F 75 18 154/84 97 08/23/19 02:35 75 18 Intake and Output 08/22/19 08/23/19 08/23/19 22:59 06:59 14:59 Other: Voiding Method Toilet # Voids 1 1 # Bowel Movements 0 Weight 81.5 kg PHYSICAL EXAMINATION: GENERAL: The patient is alert and oriented x3, not in any acute distress. Well developed, well nourished. HEENT: Pupils are round and equally reacting to light. EOMI. No scleral icterus. No conjunctival pallor. Normocephalic, atraumatic. No pharyngeal erythema. No thyromegaly. CARDIOVASCULAR: S1 and S2 present. No murmurs, rubs, or gallops. PULMONARY: Chest is clear to auscultation, no wheezing or crackles. ABDOMEN: Soft, nontender, nondistended, normoactive bowel sounds. No palpable organomegaly. MUSCULOSKELETAL: No joint swelling or deformity. EXTREMITIES: No cyanosis, clubbing, or pedal edema. NEUROLOGICAL: Gross neurological examination did not reveal any focal deficits. SKIN: No rashes. Results CBC & Chem 7: 08/22/19 23:00 08/22/19 23:00 Labs: Abnormal Lab Results - Last 24 Hours (Table) 08/22/19 08/22/19 Range/Units 23:00 23:00 RBC 3.74 L (4.30-5.90) m/uL Hgb 12.6 L (13.0-17.5) gm/dL Hct 36.0 L (39.0-53.0) % Sodium 135 L (137-145) mmol/L BUN 24 H (9-20) mg/dL Glucose 143 H (74-99) mg/dL Thrombosis Risk Factor Assmnt - Choose All That Apply Any of the Below Risk Factors Present?: No Other Risk Factors: Yes Each Risk Factor Represents 3 Points: Age 75 years or older Other congenital or acquired thrombophilia - If yes, enter type in comment: No Thrombosis Risk Factor Assessment Total Risk Factor Score: 3 Thrombosis Risk Factor Assessment Level: Moderate Risk Assessment and Plan Plan: Chest pain: We'll rule out a concurrent syndromes, unstable angina patient will undergo cardiac catheterization today because of the typical age of the chest pain. -Hyperlipidemia -History of coronary artery disease For above-mentioned chronic medical problems patient will be resumed on appropriate home medications.
[2019-08-23] MEDS ORDERED: LIDOCAINE 1% INJ 10MG/ML (20 ML MDV) ONE (12:14)
[2019-08-23] MEDS ORDERED: LIDOCAINE 1% INJ 10MG/ML (20 ML MDV) SQ ONE (12:19)
[2019-08-23] MEDS ORDERED: IV FLUID CONTINUATION 600 ML IV ONE (12:20)
[2019-08-23] MEDS ORDERED: MIDAZOLAM 2 MG/2 ML VIAL IV ONE (12:20)
[2019-08-23] MEDS ORDERED: IOPAMIDOL-370 125ML BTL INJ ONE (12:26)
[2019-08-23] MEDS ORDERED: RX INFO: IV CONTRAST WAS GIVEN 1 EACH MISC MISCELLANE PRN (12:37)
--- NOTE | 2019-08-23 14:20 | CONS ---
CONSULTATION Mr. Aguila is an 89-year-old male who is quite active physically, who presented with chest and left arm discomfort reminding him somewhat of his prior anginal pain. The discomfort occurred yesterday at rest. Patient was active during the day and became quite short of breath, more than usual, came and sat down and started to have the discomfort, came into the emergency room and subsequently admitted. He has nitroglycerin at home and did not have any significant relief. He denies any dizziness or palpitation. He denies any PND, orthopnea, or peripheral edema. He has been followed by Dr. Rosario on a regular basis and was seen recently and was stable. He underwent cardiac catheterization in October 2017 and was found to have a 70%-80% stenosis in the ostial diagonal branch and a significant stenosis in the proximal right coronary artery. He underwent stenting of the right coronary artery using a 4.0 x 18 mm stent. Apparently, a few months after well in [place], he had chest pain and underwent repeat cardiac catheterization and at that time there was no evidence of significant progression of disease. In 2018, his systolic function was reported showing 45%-50% with mild to moderate mitral regurgitation. The patient has not had any significant discomfort at all at this time. His medication at home include Lipitor 40 mg daily and aspirin once a day. He is a nonsmoker. REVIEW OF SYSTEMS: RESPIRATORY SYSTEM: No recent wheezing or cough. No history of documented obstructive lung disease. GI SYSTEM: No recent GI bleed, no peptic ulcer disease. SYSTEM: No dysuria or hematuria. NERVOUS SYSTEM: No history of stroke or seizure. PHYSICAL EXAMINATION: Blood pressure 150/80 with a heart rate in the 70s. HEAD: Normocephalic. EYES: Sclerae nonicteric. NECK: Good upstroke, no bruit, no jugular venous distention. LUNGS: Clear to auscultation. HEART: Regular rate and rhythm, S1, S2. No S3 with a systolic ejection murmur heard at the base. No diastolic murmur, no rub. ABDOMEN: Soft, nontender, positive bowel sounds, no organomegaly. EXTREMITIES: No edema. LAB DATA: Revealed a hemoglobin of 12.6, BUN and creatinine 24 and 0.7, potassium 4.1, troponin 0.012. EKG revealed a sinus mechanism, rate of 61, first-degree AV block, PVCs with no acute ST-segment changes. IMPRESSION: 1. Chest discomfort, highly suggestive of angina pectoris in a patient with known history of coronary artery disease. 2. History of hyperlipidemia. RECOMMENDATION: I would recommend to obtain echocardiogram with Doppler. I have discussed with him the option of proceeding with coronary angiography to assess his status and guide his treatment. The rationale behind the procedure, its risks and the complication were discussed with the patient who is in full understanding and agreement. Depending on results of testing, further recommendation will be made. Thank you for this consult. Will follow with you. MMODL / IJN: [id number] /
--- NOTE | 2019-08-23 15:50 | LTR ---
DATE OF SERVICE: 08/23/2019 RE: Jaron Aguila Dear Dr. David: I performed cardiac catheterization on Jaron Aguila, a detailed catheterization note is enclosed for your records. In brief, cardiac catheterization reveals patent stent within the right coronary artery. His management is going to be in the form of risk factor modification optimal medical therapy. Thank you for giving me the privilege in participating in the care of this pleasant gentleman. Sincerely, MD RINA Potter / DOT: [id number] /
--- NOTE | 2019-08-23 15:50 | CC ---
CARDIAC CATHETERIZATION REPORT INDICATION: Unstable angina. PROCEDURE NOTE: After obtaining informed consent, left heart catheterization and coronary angiogram were performed via the right femoral artery using standard Anju catheters. Patient tolerated the procedure well without any obvious immediate complications. A femoral angiogram was performed and Angio-Seal was deployed for hemostasis. Patient received moderate conscious sedation and total sedation time was 12 minutes. FINDINGS: HEMODYNAMICS: Left ventricular end-diastolic pressure is 14 mm. There is no significant gradient across the aortic valve. LEFT VENTRICULOGRAM: Left ventriculogram is not performed. ANGIOGRAPHIC DATA: LEFT MAIN CORONARY ARTERY: Left main coronary artery is a normal-sized vessel and is free of stenosis. Divides into left anterior descending coronary artery and circumflex coronary artery. LAD gives off a large caliber diagonal branch that shows an ostial stenosis which was noted on a prior cardiac cath, very distal LAD as it reaches the apex. There is an an 80%-90% focal stenosis. This again remains unchanged from a prior catheterization. Circumflex coronary artery and its branches are free of significant disease. Right coronary artery is a large dominant vessel and the previously stented segment in the mid RCA appears patent. CONCLUSION: 1. Patent stent within the right coronary artery. 2. Moderate severe disease involving the very distal LAD is and the ostial portion of the diagonal branch remained unchanged from a cardiac catheterization in 2018. PLAN: Patient's symptoms are probably related to the stress. His has dementia. His management is going to be with continued medical therapy. MMODL / IJN: [id number] /
[2019-08-23 17:33] VITALS: TEMP 97.8
[2019-08-23 17:36] VITALS: RESP 16
[2019-08-23 17:42] VITALS: BP 110/58; PULSE 55
[2019-08-23] MEDS ORDERED: ATORVASTATIN 40 MG TAB PO SCH (21:00)
--- NOTE | 2019-08-24 07:48 | ECHOF ---
Referral Reason:cad MEASUREMENTS -------- HEIGHT: 172.7 cm WEIGHT: 81.2 kg BP: 154/84 RVIDd: 3.7 cm (< 3.3) IVSd: 1.3 cm (0.6 - 1.1) LVIDd: 5.7 cm (3.9 - 5.3) LVPWd: 1.5 cm (0.6 - 1.1) IVSs: 1.9 cm LVIDs: 3.9 cm LVPWs: 1.9 cm LA Diam: 4.1 cm (2.7 - 3.8) LAESV Index (A-L): 45.35 ml/m Ao Diam: 4.1 cm (2.0 - 3.7) AV Cusp: 1.7 cm (1.5 - 2.6) MV EXCURSION: 16.963 mm (> 18.000) MV EF SLOPE: 126 mm/s (70 - 150) EPSS: 1.1 cm MV E Igrish: 0.62 m/s MV DecT: 308 ms MV A Girish: 0.63 m/s MV E/A Ratio: 0.98 AR PHT: 661 ms RAP: 5.00 mmHg RVSP: 28.15 mmHg FINDINGS -------- This was a technically adequate study. The left ventricular size is normal. There is moderate concentric left ventricular hypertrophy. O verall left ventricular systolic function is low-normal with, an EF between 50 - 55 %. The right ventricle is mild to moderately enlarged. LA is severely dilated >40 ml/m2 The right atrium is normal in size. 5.0mg of Lumason was utilized for enhancement of images Interatrial and interventricular septum intact. There is mild aortic valve sclerosis. There is mild aortic regurgitation. Mild mitral regurgitation is present. Mild tricuspid regurgitation present. Right ventricular systolic pressure is normal at < 35 mmHg. The pulmonic valve was not well visualized. The aortic root is dilated measuring 4.1cm. IVC Not well visulized. There is no pericardial effusion. CONCLUSIONS -------- 1. This was a technically adequate study. 2. The left ventricular size is normal. 3. There is moderate concentric left ventricular hypertrophy. 4. Overall left ventricular systolic function is low-normal with, an EF between 50 - 55 %. 5. The right ventricle is mild to moderately enlarged. 6. LA is severely dilated >40 ml/m2 7. The right atrium is normal in size. 8. 5.0mg of Lumason was utilized for enhancement of images 9. Interatrial and interventricular septum intact. 10. There is mild aortic valve sclerosis. 11. There is mild aortic regurgitation. 12. Mild mitral regurgitation is present. 13. Mild tricuspid regurgitation present. 14. Right ventricular systolic pressure is normal at < 35 mmHg. 15. The pulmonic valve was not well visualized. 16. The aortic root is dilated measuring 4.1cm. 17. IVC Not well visulized. 18. There is no pericardial effusion. CAFETERIA COOK: Yulia Lewis RDCS
--- NOTE | 2019-08-27 13:26 | P.DS ---
Providers Date of admission: 08/23/19 01:15 Expected date of discharge: 08/23/19 Attending physician: José Luis Harrsi Consults: 08/23/19 05:21 Consult Physician Routine Consulting Provider: Young Rosario Consult Reason/Comments: Chest Pain Do you want consulting provider notified?: Yes, Notify in am Primary care physician: Frankie Sierra Hospital Course: Patient later underwent cardiac catheterization on the same day and was cleared by cardiology patient did not require any stenting. Patient was subsequently discharged. Is refer to my HPI from the same day. Plan - Discharge Summary Discharge Rx Participant: No New Discharge Prescriptions: Continue Potassium Gluconate 99 mg PO DAILY Multivit-Min/FA/Lycopen/Lutein [Centrum Silver Men Tablet] 1 tab PO DAILY Aspirin 81 mg PO DAILY #30 chew Atorvastatin [Lipitor] 40 mg PO HS #30 tab Nitroglycerin Sl Tabs [Nitrostat] 0.4 mg SUBLINGUAL Q5M PRN #25 tab PRN Reason: Chest Pain Discharge Medication List Multivit-Min/FA/Lycopen/Lutein [Centrum Silver Men Tablet] 1 tab PO DAILY 10/12/17 [History] Potassium Gluconate 99 mg PO DAILY 10/12/17 [History] Aspirin 81 mg PO DAILY #30 chew 10/14/17 [Rx] Atorvastatin [Lipitor] 40 mg PO HS #30 tab 10/14/17 [Rx] Nitroglycerin Sl Tabs [Nitrostat] 0.4 mg SUBLINGUAL Q5M PRN #25 tab 10/14/17 [Rx] Follow up Appointment(s)/Referral(s): Frankie Sierra MD [Primary Care Provider] - 1 Week (Please call during normal business hours to schedule appointment. ) Young Rosario MD [STAFF PHYSICIAN] - 1 Week (Please call during normal business hours to schedule appointment. ) Patient Instructions/Handouts: *Surgery [facility] - After Heart Catheterization - [employer] Instructions, Chest Pain (DC) Discharge Disposition: HOME SELF-CARE
== END 2019-08-23 12:37 | disposition home or self-care (01) ==
LOC: EC 22:37 → 3SCARD 08-23 01:15 → INTOOBSV 08-23 01:15 → 3SCARD 08-23 02:35 → UNDODISIN 08-23 19:10
PROVIDERS: ADMIT Hospitalist; ATTEND Hospitalist
PROC: 4A023N7 Measurement of Cardiac Sampling and Pressure, Left Heart, Percutaneous Approach (ICD-10-PCS; principal; 2019-08-23 11:40)
PROC: B2111ZZ Fluoroscopy of Multiple Coronary Arteries using Low Osmolar Contrast (ICD-10-PCS; principal; 2019-08-23 11:40)
DX: R07.89 Other chest pain (principal); M79.602 Pain in left arm; R06.02 Shortness of breath; E78.5 Hyperlipidemia, unspecified; I25.10 Atherosclerotic heart disease of native coronary artery without angina pectoris; I25.2 Old myocardial infarction; I44.0 Atrioventricular block, first degree; Z85.46 Personal history of malignant neoplasm of prostate; Z85.828 Personal history of other malignant neoplasm of skin; Z85.51 Personal history of malignant neoplasm of bladder; Z79.899 Other long term (current) drug therapy; Z79.82 Long term (current) use of aspirin; Z88.1 Allergy status to other antibiotic agents; Z95.5 Presence of coronary angioplasty implant and graft; Z82.49 Family history of ischemic heart disease and other diseases of the circulatory system; Z82.3 Family history of stroke; Z11.59 Encounter for screening for other viral diseases; Z96.652 Presence of left artificial knee joint
CPT/HCPCS: 99285; 93458; 83880; 80053; 84484; 85025; 85610; 85730; 71046; G0378; C8929; C1769 ×2; C1760; C1894; U0003; J2250; J2001; Q9950; Q9967; 93306

== ENCOUNTER → 2020-01-30 | Outpatient (CLI) | payer MEDICARE ==
[2020-01-30 10:45] LABS: Chol/HDL Ratio 2.21; LDL Cholesterol,Calculated 51.8 mg/dL (0.0-131.0); VLDL Calculation 11.2 mg/dL (5.00-40.00)
== END | disposition home or self-care (01) ==
LOC: LABWHC1 07:17
PROVIDERS: ATTEND Internal Medicine Cardiovascular Disease
DX: E78.2 Mixed hyperlipidemia (principal)
CPT/HCPCS: 36415; 80061; 84450; 84460

== ENCOUNTER → 2021-01-02 | Outpatient (CLI) | payer MEDICARE ==
[2021-01-02 16:53] LABS: Chol/HDL Ratio 1.96 Ratio; HDL Cholesterol 59.3 mg/dL (40.00-60.00); LDL Cholesterol,Calculated 43.9 mg/dL (0.0-131.0); Triglycerides 64.2 mg/dL (0.00-149.00); VLDL Calculation 12.84 mg/dL (5.00-40.00)
== END | disposition home or self-care (01) ==
LOC: LABWHC1 07:39
PROVIDERS: ATTEND Internal Medicine Cardiovascular Disease
DX: E78.2 Mixed hyperlipidemia (principal)
CPT/HCPCS: 36415; 80061; 84450; 84460

== ENCOUNTER → 2021-08-13 | Outpatient (CLI) | payer MEDICARE ==
--- NOTE | 2021-08-13 13:49 | CT ---
EXAMINATION TYPE: CT urogram wo/w con DATE OF EXAM: 08/13/2021 COMPARISON: Noncontrast CT 02/15/2018 HISTORY: 89-year-old male C66.1, history of malignant neoplasm of right ureter. Also, history of pros andrew cancer. TECHNIQUE: Contiguous axial scanning of the abdomen and pelvis performed without and with IV Contrast , patient injected with 70 mL of Isovue 300. Delayed images through the kidneys and bladder were obta ined. Coronal/sagittal reconstructions performed. 3-D reconstructions generated on a dedicated [employer] workstation. CT DLP: 2907.40 mGycm Automated exposure control for dose reduction was used. FINDINGS: The heart is mildly enlarged with RCA and LAD coronary artery calcifications visualized. No pericardi al granuloma at the left base. No pleural effusion. Small hiatal hernia. Numerous hepatic cysts are redemonstrated. Most of these are small measuring up to 2.1 cm. The larges t located centrally in the left liver lobe measures 6.6 cm versus 5.5 cm, previously. Cholecystectomy clips. No biliary ductal dilatation. Portal venous system is patent. Adrenal glands and atrophic pancreas show no gross abnormality. Small punctate calcified granulomas w ithin the spleen. 3.2 cm left upper pole renal cortical cyst versus 2.4 cm, previously. A couple subcentimeter cortical hypodensities posterior left kidney too small for accurate CT characterization, probable additional tiny cysts. No renal calculi. Symmetric uptake and excretion of contrast from both kidneys. No hydronephrosis. No abnormal filling defect within the renal collecting system or ureters. No dilated small bowel, free fluid, or free air. Mild stool in the right side of the colon. No laurent lonic inflammatory change. Under distention of the bladder limits its evaluation. No abnormal filling defects seen along the pos terior half of the opacified bladder. Right-sided pelvic phlebolith. No abnormal fluid collection in the pelvis or pelvic lymphadenopathy. As a reservoir for a penile implant is noted in the left parame sabrina pelvis. Prostate gland surgically absent. Bones: Degenerated S-shaped scoliotic curvature lumbar spine. Osteopenia. Grade 1 retrolisthesis L1-L 2. IMPRESSION: 1. A BENIGN 2.2 CM LEFT UPPER POLE RENAL CYST VERSUS 2.4 CM BACK IN 2018. A COUPLE ADDITIONAL TINY CO RTICAL HYPODENSITIES IN THE LEFT KIDNEY ARE TOO SMALL FOR CT CHARACTERIZATION, PROBABLE ADDITIONAL TI [place] CYSTS. 2. NO RENAL STONES, HYDRONEPHROSIS, SUSPICIOUS FILLING DEFECT IN THE RENAL COLLECTING SYSTEMS, OR KJ AL MASS. 3. NUMEROUS HEPATIC CYSTS MOST OF WHICH ARE SMALL MEASURING UP TO 2.1 CM. THE LARGEST CENTRALLY IN TH E LEFT LOBE MEASURES 6.6 CM VERSUS 5.5 CM, PREVIOUSLY. 4. 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 SMALL HIATAL HERNIA. MILD CARDIOMEGALY .
== END ==
LOC: RADCTMAIN 11:38
PROVIDERS: ATTEND Urology
DX: K76.89 Other specified diseases of liver (principal); K44.9 Diaphragmatic hernia without obstruction or gangrene; Z85.54 Personal history of malignant neoplasm of ureter
CPT/HCPCS: 82565; 84520; 74178; 36415; 74400; Q9967